=== PATIENT | male | born 1995 | race African-American/Black ===

== ENCOUNTER 2017-08-22 09:18 | Emergency (ER) | payer SELFPAY ==
[~2017-08-22 09:18] MED LIST: CEPH500C3 PO; Z.0.NO CURRENT MEDS
[2017-08-22 09:24] VITALS: BP 139/60; PULSE 79; RESP 16; TEMP 98.7; O2SAT 99
--- NOTE | 2017-08-22 10:36 | PD ---
HPI Chief Complaint: Cold / Flu Symptoms Time Seen by Provider: 10:18 Travel History International Travel<30 days: No Contact w/Intl Traveler<30days: No Traveled to known affect area: No History of Present Illness HPI 22 year-old male presents to the emergency room for evaluation of sore throat, body aches, subjective fevers, cough, and congestion since last night. States he feels weak. He was taking Advil but vomited last night. No alleviating or aggravating symptoms. He denies any chronic medical problems or daily medications. PFSH Past Medical History Developmental Delay: No Immunizations Current: Yes Social History Alcohol Use: No Tobacco Use: No Substance Use: No Allergies-Medications (Allergen,Severity, Reaction): Coded Allergies: No Known Allergies (Verified Adverse Reaction, Unknown, 08/22/17) Reported Meds & Prescriptions Reported Meds & Active Scripts Active No Active Prescriptions or Reported Medications Review of Systems Except as stated in HPI: all other systems reviewed are Neg Physical Exam Narrative GENERAL: Well developed in no acute distress. SKIN: Warm and dry. HEAD: Atraumatic. Normocephalic. EYES: Pupils equal and round. No scleral icterus. No injection or drainage. ENT: No nasal bleeding or discharge. Mucous membranes pink and moist. Mild erythema of pharynx. No exudates. EARS: Bilateral TMs pearly julien without effusion. NECK: Trachea midline. No JVD. CARDIOVASCULAR: Regular rate and rhythm. RESPIRATORY: No accessory muscle use. Clear to auscultation. Breath sounds equal bilaterally. Data Data Last Documented VS Vital Signs Date Time Temp Pulse Resp B/P (MAP) Pulse Ox O2 Delivery O2 Flow Rate FiO2 08/22/17 09:24 98.7 79 16 139/60 (86) 99 Orders Orders Group A Rapid Strep Screen (08/22/17 09:26) Influenzae A/B Antigen (08/22/17 09:26) Strep Culture (Group A) (08/22/17 09:31) Ed Discharge Order (08/22/17 11:01) MDM Medical Decision Making Medical Screen Exam Complete: Yes Emergency Medical Condition: Yes Medical Record Reviewed: Yes Differential Diagnosis viral syndrome, flu, strep, PNA Narrative Course 22 year-old male presents to the ED for evaluation of cold and flu symptoms since last night. Patient is well-appearing. Vitals stable. Physical exam unremarkable. Flu and strep negative. This is viral syndrome. Patient discharged with instructions to take OTC meds, follow up with PCP, return as needed. He understands and agrees to plan. Diagnosis Primary Impression: Viral syndrome Referrals: Primary Care Physician Additional Instructions: Continue OTC medications. Follow up with Primary Care. Return for worsening symptoms. Scripts No Active Prescriptions or Reported Meds Disposition: 01 DISCHARGE HOME Condition: Stable Kisha Sheikh Aug 22, 2017 10:36
== END 2017-08-22 11:29 | disposition home or self-care (01) ==
LOC: NEPK 09:18
DX: B34.9 Viral infection, unspecified (principal)
CPT/HCPCS: 87081; 87804; 87880; 99283